=== PATIENT | female | born 1950 ===

== ENCOUNTER 2022-03-19 05:56 | Day surgery (SDC) | payer OTHER ==
[~2022-03-19 05:56] MED LIST: PROTONIX PO; ZETIA PO
[2022-03-19] MEDS ORDERED: MACROBID 100 M100 MG PO (11:27)
[2022-03-19] MEDS ORDERED: ULTRACET PO (11:28)
== END 2022-03-19 15:15 | disposition home or self-care (01) ==
LOC: CIR.AMB 05:56
PROVIDERS: ATTEND Obstetrics & Gynecology Gynecology
DX: N81.11 Cystocele, midline (principal); N81.12 Cystocele, lateral; N81.5 Vaginal enterocele; Z20.822 Contact with and (suspected) exposure to COVID-19; Z88.8 Allergy status to other drugs, medicaments and biological substances; E78.5 Hyperlipidemia, unspecified; Z86.16 Personal history of COVID-19; G43.909 Migraine, unspecified, not intractable, without status migrainosus